=== PATIENT | female | born 1975 ===

== ENCOUNTER → 2025-08-31 | Day surgery (SDC) | payer OTHER ==
[2025-08-24 13:40] VITALS: BP 129/79
[~2025-08-31] VITALS: Ht 162.6 cm; Wt 72.6 kg
[~2025-08-31] MED LIST: CIPROFLOXACIN IN 5 % DEXTROSE 400 MG/200 ML PIGGYBAG IV ONE; ENALAPRILAT DIHYDRATE 1.25 MG/ML VIAL IV ONE; GENTAMICIN SULFATE 40 MG/ML VIAL ONE; MACROBID 100 M100 MG PO; SUGAMMADEX SODIUM 200 MG/2 ML VIAL IV ONE; TRAM1TAB98 PO
== END | disposition home or self-care (01) ==
LOC: ADM 08-24 12:45 → CIR.AMB 09:00
PROVIDERS: ATTEND Obstetrics & Gynecology Gynecology
DX: N39.3 Stress incontinence (female) (male) (principal); Z88.0 Allergy status to penicillin
CPT/HCPCS: 57288; C1771